=== PATIENT | male | born 1950 | race Caucasian/White ===

== ENCOUNTER 2022-05-24 21:49 | Inpatient (IN) ==
[2022-05-24] MEDS ORDERED: SODIUM CHLORIDE 0.9% 1000ML 1,000 ML IV ONE (21:55)
--- NOTE | 2022-05-24 22:09 | Emergency Department Note ---
Impression & Plan Seizure, Syncope, Elevated troponin I level, Contusion of left shoulder, Mass of bladder ED Provider Note NAME: OLIVIA SHEPHERD AGE: 71 SEX: M : 1950 ARRIVES VIA: Ambulance INFORMANT: Patient, ED PROVIDER(S): Marlon Knox DO CHIEF COMPLAINT: Syncope HPI: The patient is a 71-year-old male who presented to the emergency department after having a syncopal episode. Apparently the patient was at [facility] in [facility]. He was with family members. The patient states that he remembered going to stand up when he became very lightheaded and felt as though he was going to pass out. He does not remember what happened next. According to family members the patient fell striking the back of his head. The patient denies having any headache or abdominal pain. There was a reported seizure. The patient was then helped to his feet but then had another seizure. He did bite his tongue and have loss of bladder continence. The patient states he has no seizure history. He does have a history of COPD. He states over the course the last few weeks he has been very short of breath. He denies having any recent trauma otherwise. He does admit to some alcohol use this evening. ROS: See above HPI for pertinent positives & negatives. A total of 10 systems reviewed and were otherwise negative. PAST MEDICAL HISTORY: See Below PAST SURGICAL HISTORY: See Below FAMILY HISTORY: See Below SOCIAL HISTORY: See Below HOME MEDICATIONS: See Below ALLERGIES: See Below VITALS: See Below PHYSICAL EXAMINATION: GENERAL: The patient is awake and responds to questions. He does not appear to be uncomfortable but appears slightly listless. EYES: The conjunctivae are clear. The pupils are round and reactive. EARS, NOSE, MOUTH AND THROAT: The nose is without any evidence of any deformity. Mucous membranes are moist. There is a bite injury to the left side of the tongue. No active bleeding was noted. NECK: The neck is nontender and supple. RESPIRATORY: Diminished breath sounds are noted throughout. There is no tachypnea or conversational dyspnea CARDIOVASCULAR: Regular rate and rhythm noted there no murmurs rubs or gallops normal S1 normal S2. GASTROINTESTINAL: The abdomen is soft. Abdomen is nontender. MUSCULOSKELETAL/EXTREMITIES: There is no evidence of gross deformity full range of motion is noted in the hips. There is tenderness to palpation over the left shoulder. There is no crepitus. Range of motion appears intact but painful. SKIN: There is no obvious evidence of any rash. There are no petechiae, pallor or cyanosis noted. NEUROLOGIC: Patient is awake and oriented x3 strength is symmetric patellar reflexes are 2+ bilaterally MEDICAL DECISION MAKING: The patient is a 71-year-old male who presented to the emergency department by ambulance for an evaluation after having a syncopal episode. The patient apparently had syncope but also had 2 seizures. His family embers called 911. They were very concerned about the seizure but also the patient fell backwards striking his head. Upon arrival to the emergency department he was awake and alert. He clearly had a seizure as he did lose loss of control of his bladder b ut also bit his tongue. He does have a history of alcohol use. He is not clinically intoxicated and his presentation today would not be consistent with alcohol withdrawal seizure as he is not overly hypertensive or tachycardic. I discussed the patient's laboratory and radiographic studies with him and his son. He was treated with IV fluids in the emergency department. Initially he was hypotensive but this improved significantly after IV fluids. Given the patient's findings on laboratory study I do feel that he may benefit from inpatient management and further work-up. For this reason I will discuss his case with the on-call hospitalist. Triage Nursing notes reviewed. Prior medical records reviewed Vital Signs: reviewed and remarkable for tachycardia. Differential diagnosis: Fracture, dislocation, contusion, intra-abdominal, pneumothorax, intrathoracic, intracranial, neurologic, compartment syndrome, rhabdomyolysis, as well as other pathologies. ER treatment provided: See below Diagnostics interpreted by me: ECG: EKG was obtained in the emergency department. My interpretation is sinus tachycardia 110 bpm. Low voltage was noted throughout. Nonspecific T wave abnormalities were also noted. No previous tracing was available Cardiac Monitoring: An order was placed for continuous cardiac monitoring. The monitor shows a rate of 112 bpm with sinus tachycardia Laboratory studies: As stated above and show below. Imaging studies: See below. Radiographic imaging was reviewed by myself Consultation(s): I discussed this case with Dr. Patel who is on-call for the [facility] hospitalist group. Past Med/Surg History Medical History COPD (chronic obstructive pulmonary disease) Social History Smoking Status: Unknown if ever smoked Feels Safe at Home: Yes Allergies Allergies Allergy/AdvReac Type Severity Reaction Status Date / Time adhesive Allergy Redness of Verified 05/24/22 23:41 Skin latex Allergy Rash Verified 05/24/22 23:40 Home Meds Home Medications Medication Instructions Recorded Confirmed acetaminophen 500 mg tablet 1,000 mg PO BID PRN Pain 05/24/22 05/24/22 atorvastatin 20 mg tablet 20 mg PO DAILY 05/24/22 05/24/22 azithromycin 250 mg tablet 250 mg PO 3XWK 05/24/22 05/24/22 cyanocobalamin (vitamin B-12) 1,000 mcg PO DAILY 05/24/22 05/24/22 1,000 mcg tablet diclofenac sodium 75 mg 75 mg PO AMPM 05/24/22 05/24/22 tablet,delayed release diphenhydramine HCl 50 mg tablet 50 mg PO BID 05/24/22 05/24/22 fluticasone fur. 200 mcg-umeclid 1 inh inhalation DAILY 05/24/22 05/25/22 62.5 mcg-vilant 25 mcg inhalat.powder (Trelegy Ellipta) olmesartan 20 mg tablet 20 mg PO QAM 05/24/22 05/24/22 tadalafil 20 mg tablet 20 mg PO DAILY PRN Erectile 05/24/22 05/24/22 Dysfunction tamsulosin 0.4 mg capsule 0.4 mg PO AMPM 05/24/22 05/24/22 temazepam 30 mg capsule 30 mg PO HS 05/24/22 05/24/22 trazodone 50 mg tablet 50 mg PO HS PRN Insomnia 05/24/22 05/24/22 albuterol sulfate 90 mcg/actuation 2 inh inhalation Q4H PRN Shortness 05/25/22 05/25/22 aerosol inhaler Of Breath Or Wheezing hydrochlorothiazide 12.5 mg capsule 12.5 mg PO QAM 05/25/22 05/25/22 Results & Data (ED) Vital Signs Vital Signs - 24 hr 05/24/22 22:10 05/24/22 23:00 05/24/22 22:47 Temperature 37.1 C Temperature Source Oral Pulse Rate 109 H 108 H 108 H Pulse Rate [Left Radial] Pulse Rhythm Regular Pulse Rhythm [Left Radial] Pulse Strength Normal Pulse Strength [Left Radial] Respiratory Rate 22 Respiratory Effort / Characteristics Non-Labored Spontaneous Respiratory Depth Normal Respiratory Pattern Blood Pressure 93/70 L Blood Pressure [Right Arm] Blood Pressure Mean 77 Blood Pressure Mean [Right Arm] Blood Pressure Position Lying Pulse Oximetry 96 Oxygen Delivery Method Room Air Sepsis Recent Fever Within 48 Hours No Sepsis New/Unexplained Change in Mental Status No Sepsis Action Taken by Nursing No Action Required 05/25/22 00:11 Temperature Temperature Source Pulse Rate Pulse Rate [Left Radial] 112 H Pulse Rhythm Pulse Rhythm [Left Radial] Regular Pulse Strength Pulse Strength [Left Radial] Normal Respiratory Rate 15 Respiratory Effort / Characteristics Non-Labored Spontaneous Respiratory Depth Normal Respiratory Pattern Regular Blood Pressure Blood Pressure [Right Arm] 133/78 Blood Pressure Mean Blood Pressure Mean [Right Arm] 96 Blood Pressure Position Pulse Oximetry 96 Oxygen Delivery Method Room Air Sepsis Recent Fever Within 48 Hours Sepsis New/Unexplained Change in Mental Status Sepsis Action Taken by Skilled Nursing Medications Current Medication List: was personally reviewed by me Laboratory Data Attestation: I reviewed the patient's lab results. 05/24/22 22:01 05/24/22 23:43 Lab Results 05/24/22 05/24/22 05/24/22 Range/Units 22:01 22:01 22:01 WBC 8.07 (4.8-10.8) K/ul RBC 3.15 L (4.70-6.10) M/uL Hgb 11.3 L (14.0-18.0) g/dl POC Hgb (14.0-18.0) g/dl Hct 31.8 L (42.0-52.0) % POC Hct (42-52) % MCV 101.0 H (80.0-100.0) fL MCH 35.9 H (25.0-34.0) pg MCHC 35.5 (32.0-36.0) g/dL RDW Std Deviation 47.4 H (36.4-46.3) fL RDW Coeff of Harish 12.8 (11.5-14.5) % Plt Count 168 (130-400) K/uL MPV 11.0 (9.4-12.4) fL Immature Gran % (Auto) 1.5 % Neut % (Auto) 77.3 % Lymph % (Auto) 12.1 % [place] % (Auto) 7.7 % Eos % (Auto) 0.9 % Baso % (Auto) 0.5 % Neut # (Auto) 6.24 (1.40-6.50) K/uL Lymph # (Auto) 0.98 L (1.2-3.4) K/uL [place] # (Auto) 0.62 H (0.11-0.59) K/uL Eos # (Auto) 0.07 (0-0.50) K/uL Baso # (Auto) 0.04 (0-0.2) K/uL Immature Gran # (Auto) 0.12 (0.01-0.20) K/uL PT Cancelled INR Cancelled APTT Cancelled PTT Ratio Cancelled POC Sodium (135-144) mmol/L Sodium Cancelled POC Potassium (3.3-5.0) mmol/L Potassium Cancelled POC Chloride (101-112) mmol/L Chloride Cancelled Carbon Dioxide Cancelled POC Total CO2 (24-31) mmol/L Anion Gap Cancelled POC Anion Gap (16-25) mmol/L POC BUN (7-18) mg/dl BUN Cancelled Creatinine Cancelled POC Creatinine (0.6-1.3) mg/dl Est Cr Clr Drug Dosing Cancelled Est GFR ( Amer) Cancelled Est GFR (Non-Af Amer) Cancelled BUN/Creatinine Ratio Cancelled Glucose Cancelled POC Glucose (other) (70-99) mg/dl Calcium Cancelled POC Ioniz Calcium Melchor (1.12-1.32) mmol/l Total Bilirubin Cancelled AST Cancelled ALT Cancelled Alkaline Phosphatase Cancelled Troponin I High Sens Cancelled Total Protein Cancelled Albumin Cancelled Globulin Cancelled Albumin/Globulin Ratio Cancelled Lipase Cancelled Ethyl Alcohol mg/dL (<10.0) mg/dl 05/24/22 05/24/22 05/24/22 Range/Units 22:01 22:05 23:43 WBC (4.8-10.8) K/ul RBC (4.70-6.10) M/uL Hgb (14.0-18.0) g/dl POC Hgb 11.9 L (14.0-18.0) g/dl Hct (42.0-52.0) % POC Hct 35 L (42-52) % MCV (80.0-100.0) fL MCH (25.0-34.0) pg MCHC (32.0-36.0) g/dL RDW Std Deviation (36.4-46.3) fL RDW Coeff of Harish (11.5-14.5) % Plt Count (130-400) K/uL MPV (9.4-12.4) fL Immature Gran % (Auto) % Neut % (Auto) % Lymph % (Auto) % [place] % (Auto) % Eos % (Auto) % Baso % (Auto) % Neut # (Auto) (1.40-6.50) K/uL Lymph # (Auto) (1.2-3.4) K/uL [place] # (Auto) (0.11-0.59) K/uL Eos # (Auto) (0-0.50) K/uL Baso # (Auto) (0-0.2) K/uL Immature Gran # (Auto) (0.01-0.20) K/uL PT INR APTT PTT Ratio POC Sodium 136 (135-144) mmol/L Sodium 134 L POC Potassium 5.7 H (3.3-5.0) mmol/L Potassium 4.5 POC Chloride 109 (101-112) mmol/L Chloride 106 Carbon Dioxide 19 L POC Total CO2 16 L (24-31) mmol/L Anion Gap 9 POC Anion Gap 18.0 (16-25) mmol/L POC BUN 31 H (7-18) mg/dl BUN 23 Creatinine 1.35 POC Creatinine 1.6 H (0.6-1.3) mg/dl Est Cr Clr Drug Dosing 47.1 Est GFR ( Amer) 59.9 Est GFR (Non-Af Amer) 51.7 BUN/Creatinine Ratio 17.0 Glucose 111 H POC Glucose (other) 128 H (70-99) mg/dl Calcium 9.0 POC Ioniz Calcium Melchor 1.15 (1.12-1.32) mmol/l Total Bilirubin 0.9 AST 98 H ALT 67 H Alkaline Phosphatase 65 Troponin I High Sens 59.2 H* Total Protein 7.4 Albumin 4.4 Globulin 3.0 Albumin/Globulin Ratio 1.5 Lipase 73 Ethyl Alcohol mg/dL < 10.0 (<10.0) mg/dl 04/01/23 Range/Units 23:43 WBC (4.8-10.8) K/ul RBC (4.70-6.10) M/uL Hgb (14.0-18.0) g/dl POC Hgb (14.0-18.0) g/dl Hct (42.0-52.0) % POC Hct (42-52) % MCV (80.0-100.0) fL MCH (25.0-34.0) pg MCHC (32.0-36.0) g/dL RDW Std Deviation (36.4-46.3) fL RDW Coeff of Harish (11.5-14.5) % Plt Count (130-400) K/uL MPV (9.4-12.4) fL Immature Gran % (Auto) % Neut % (Auto) % Lymph % (Auto) % [place] % (Auto) % Eos % (Auto) % Baso % (Auto) % Neut # (Auto) (1.40-6.50) K/uL Lymph # (Auto) (1.2-3.4) K/uL [place] # (Auto) (0.11-0.59) K/uL Eos # (Auto) (0-0.50) K/uL Baso # (Auto) (0-0.2) K/uL Immature Gran # (Auto) (0.01-0.20) K/uL PT 11.5 INR 1.1 APTT 23.6 PTT Ratio 0.9 POC Sodium (135-144) mmol/L Sodium POC Potassium (3.3-5.0) mmol/L Potassium POC Chloride (101-112) mmol/L Chloride Carbon Dioxide POC Total CO2 (24-31) mmol/L Anion Gap POC Anion Gap (16-25) mmol/L POC BUN (7-18) mg/dl BUN Creatinine POC Creatinine (0.6-1.3) mg/dl Est Cr Clr Drug Dosing Est GFR ( Amer) Est GFR (Non-Af Amer) BUN/Creatinine Ratio Glucose POC Glucose (other) (70-99) mg/dl Calcium POC Ioniz Calcium Melchor (1.12-1.32) mmol/l Total Bilirubin AST ALT Alkaline Phosphatase Troponin I High Sens Total Protein Albumin Globulin Albumin/Globulin Ratio Lipase Ethyl Alcohol mg/dL (<10.0) mg/dl Administered Medications Discontinued Medications Sodium Chloride (Nss 1000ml) 1,000 mls @ 999 mls/hr IV .Q1H1M ONE Stop: 05/24/22 22:55 Last Infusion: 05/24/22 23:17 Dose: 0 mls/hr Documented By: Admin: 05/24/22 22:07 Dose: 999 mls/hr Documented By: VALERIA Ioversol (Optiray 320 500ml) 112 ml IV ONCE ONE Stop: 05/24/22 22:41 Last Admin: 05/24/22 22:41 Dose: 112 ml Documented By: ZIGGY Imaging Data Attestation: I personally reviewed and interpreted this imaging study as follows: My Impression: X-ray of the left shoulder was obtained in the emergency department. My inte rpretation is no definite fracture. Final report pending CT of the brain was obtained in the emergency department. My interpretation is no intracranial hemorrhage, no mass effect, final report below. Radiologist's Impression: Cervical Spine CT 05/24/22 21:55 Exam(s): CT C SPINE EXAM: CT Cervical Spine Without Intravenous Contrast CLINICAL HISTORY: Reason for exam: fall. TECHNIQUE: Axial computed tomography images of the cervical spine without intravenous contrast. CTDI is 38.03 mGy and DLP is 2329.08 mGy-cm. Automated exposure control was utilized for the study. A dose lowering technique was utilized adhering to the principles of ALARA. COMPARISON: No relevant prior studies available. FINDINGS: Vertebrae: Unremarkable. No acute fracture. Discs/spinal canal/neural foramina: The patient is status post anterior fusion at C6-7. There are moderate multilevel degenerative changes. No spinal canal stenosis. Soft tissues: Unremarkable. Vasculature: There are dense calcifications of the carotid bulbs. IMPRESSION: No acute findings in the cervical spine. Electronically signed by: Denver Connors MD 05/24/22 23:[address] 05/24/22 21:55 Exam(s): CT HEAD Without Contrast EXAM: CT Head Without Intravenous Contrast CLINICAL HISTORY: Reason for exam: fall. TECHNIQUE: Axial computed tomography images of the head/brain without intravenous contrast. CTDI is 38.03 mGy and DLP is 2329.08 mGy-cm. Automated exposure control was utilized for the study. A dose lowering technique was utilized adhering to the principles of ALARA. COMPARISON: No relevant prior studies available. FINDINGS: Brain: The cerebral and cerebellar sulci are mildly prominent consistent with mild brain atrophy. There are a few areas of decreased attenuation in the deep cerebral white matter consistent with mild small vessel ischemic/degenerative changes. No hemorrhage. Ventricles: Unremarkable. No ventriculomegaly. Bones/joints: Rightward deviation of the bony nasal septum. No acute fracture. Soft tissues: There is soft tissue swelling over the right parietal calvarium without underlying osseous injury identified. Vasculature: Atherosclerotic disease. Sinuses: Unremarkable as visualized. No acute sinusitis. Mastoid air cells: Unremarkable as visualized. No mastoid effusion. IMPRESSION: No acute findings in the head/brain. Electronically signed by: Denver Connors MD 05/24/22 23:43 PM Abdomen/Pelvis CT 05/24/22 22:01 Exam(s): CT ABDOMEN + PELVIS With Contrast IV Amt: 112 ml optiray EXAM: CT Abdomen and Pelvis With Intravenous Contrast CLINICAL HISTORY: Reason for exam: fall. TECHNIQUE: Axial computed tomography images of the abdomen and pelvis with intravenous contrast. CTDI is 38.03 mGy and DLP is 2329.08 mGy-cm. Automated exposure control was utilized for the study. A dose lowering technique was utilized adhering to the principles of ALARA. CONTRAST: Patient received 112 ml optiray of IV contrast COMPARISON: No relevant prior studies available. FINDINGS: Lung bases: 2 cm enhancing mass at the left base of the urinary bladder (image 71 series 9) concerning for urothelial cell carcinoma. ABDOMEN: Liver: Surface nodularity of the liver which may reflect early morphologic change of cirrhosis. Gallbladder and bile ducts: Unremarkable. No calcified stones. No ductal dilation. Pancreas: Unremarkable. No mass. No ductal dilation. Spleen: Unremarkable. No splenomegaly. Adrenals: Unremarkable. No mass. Kidneys and ureters: Simple appearing right renal cyst. No hydronephrosis. Stomach and bowel: Extensive colonic diverticula. No obstruction. No mucosal thickening. PELVIS: Appendix: No findings to suggest acute appendicitis. Bladder: See above. Reproductive: Unremarkable as visualized. ABDOMEN and PELVIS: Intraperitoneal space: Unremarkable. No free air. No significant fluid collection. Bones/joints: Degenerative changes of the thoracolumbar spine. No acute fracture. No dislocation. Soft tissues: Unremarkable. Vasculature: There is diffuse atherosclerotic calcification of the aorta and its major branch vessels. No abdominal aortic aneurysm. Lymph nodes: Unremarkable. No enlarged lymph nodes. IMPRESSION: 1. No acute post traumatic injury in the abdomen or pelvis. 2. 2 cm enhancing mass within the urinary bladder concerning for urothelial cell carcinoma, please correlate with cystoscopy. Electronically signed by: Denver Connors MD 05/24/22 23:51 PM Chest CTA 05/24/22 22:01 Exam(s): CTA CHEST IV Amt: 112 ml opitiray EXAM: CT Angiography Chest With Intravenous Contrast CLINICAL HISTORY: Reason for exam: PE. TECHNIQUE: Axial computed tomographic angiography images of the chest with intravenous contrast. CTDI is 38.03 mGy and DLP is 2329.08 mGy-cm. Automated exposure control was utilized for the study. A dose lowering technique was utilized adhering to the principles of ALARA. MIP reconstructed images were created and reviewed. COMPARISON: No relevant prior studies available. FINDINGS: Pulmonary arteries: Unremarkable. No pulmonary embolism. Aorta: No acute findings. No thoracic aortic aneurysm. Lungs: There is moderate scattered emphysema. There is mild bronchial wall thickening. No mass. Pleural space: Unremarkable. No significant effusion. No pneumothorax. Heart: Unremarkable. No cardiomegaly. No significant pericardial effusion. No evidence of RV dysfunction. Bones/joints: There are degenerative changes of the thoracolumbar spine. No acute fracture. No dislocation. Soft tissues: Unremarkable. Lymph nodes: Unremarkable. No enlarged lymph nodes. IMPRESSION: No acute findings in the visualized arteries of the chest. Electronically signed by: Denver Connors MD 05/24/22 23:48 PM Discharge Plan Visit Data Chief Complaint: Seizure Stated Complaint: SEIZURES/FALL HIT HEAD ED Provider: Marlon Knox Discharge Problem: Seizure, Syncope, Elevated troponin I level, Contusion of left shoulder, Mass of bladder Patient Disposition: Being Evaluated by Hospitalist Forms Stand Alone Forms: [facility] Prescriptions Prescriptions: No Action diclofenac sodium 75 mg tablet,delayed release (DR/EC) 75 mg PO AMPM Rx Instructions: TAKE WITH FOOD atorvastatin 20 mg tablet 20 mg PO DAILY olmesartan 20 mg tablet 20 mg PO QAM azithromycin 250 mg tablet 250 mg PO 3XWK Rx Instructions: TAKE THIS MED EVERY THURSDAY/THURSDAY/THURSDAY ( LONGTERM). temazepam 30 mg capsule 30 mg PO HS tadalafil 20 mg tablet 20 mg PO DAILY PRN (Reason: Erectile Dysfunction) cyanocobalamin (vitamin B-12) 1,000 mcg Tablet 1,000 mcg PO DAILY diphenhydramine HCl 50 mg Tablet 50 mg PO BID acetaminophen [Tylenol Ex Str Rapid Release] 500 mg Tablet 1,000 mg PO BID PRN (Reason: Pain) tamsulosin 0.4 mg capsule 0.4 mg PO AMPM trazodone 50 mg tablet 50 mg PO HS PRN (Reason: Insomnia) Trelegy Ellipta 200-62.5-25 mcg blister with device 1 inh INHALATION DAILY albuterol sulfate 90 mcg/actuation HFA aerosol inhaler 2 inh INHALATION Q4H PRN (Reason: Shortness Of Breath Or Wheezing) hydrochlorothiazide 12.5 mg capsule 12.5 mg PO QAM Referrals Referrals: PCP,NO [Physician] - Syncope Qualifiers: Syncope type: unspecified Qualified Code(s): R55 - Syncope and collapse Contusion of left shoulder Qualifiers: Encounter type: initial encounter Qualified Code(s): S40.012A - Contusion of left shoulder, initial encounter
[2022-05-24 22:26] LABS: Basophils # (auto) 0.04 K/uL (0-0.2); Basophils % (auto) 0.5 %; Eosinophils # (auto) 0.07 K/uL (0-0.50); Eosinophils % (auto) 0.9 %; Hematocrit (blood only) 31.8 % (42.0-52.0); Hemoglobin 11.3 g/dl (14.0-18.0); Immature Granulocytes # (auto) 0.12 K/uL (0.01-0.20); Immature Granulocytes % (auto) 1.5 %; Lymphocytes # (auto) 0.98 K/uL (1.2-3.4); Lymphocytes % (auto) 12.1 %; Mean Corpuscular Hemoglobin 35.9 pg (25.0-34.0); Mean Corpuscular Hgb Conc 35.5 g/dL (32.0-36.0); Monocytes # (auto) 0.62 K/uL (0.11-0.59); Monocytes % (auto) 7.7 %; Neutrophils # (auto) 6.24 K/uL (1.40-6.50); Neutrophils % (auto) 77.3 %; Platelet Count 168 K/uL (130-400); RDW Coefficient of Variation 12.8 % (11.5-14.5); RDW Standard Deviation 47.4 fL (36.4-46.3); Red Blood Count 3.15 M/uL (4.70-6.10); White Blood Count 8.07 K/ul (4.8-10.8)
[2022-05-24 22:28] LABS: iSTAT Creatinine 1.6 mg/dl (0.6-1.3); iSTAT Hemoglobin 11.9 g/dl (14.0-18.0); iSTAT Ionized Calcium 1.15 mmol/l (1.12-1.32); iSTAT Potassium 5.7 mmol/L (3.3-5.0)
[2022-05-24] MEDS ORDERED: OPTIRAY 320 500ml IV ONE (22:40)
--- NOTE | 2022-05-24 23:44 | CT Scan Report ---
Exam(s): CT HEAD Without Contrast EXAM: CT Head Without Intravenous Contrast CLINICAL HISTORY: Reason for exam: fall. TECHNIQUE: Axial computed tomography images of the head/brain without intravenous contrast. CTDI is 38.03 mGy and DLP is 2329.08 mGy-cm. Automated exposure control was utilized for the study. A dose lowering technique was utilized adhering to the principles of ALARA. COMPARISON: No relevant prior studies available. FINDINGS: Brain: The cerebral and cerebellar sulci are mildly prominent consistent with mild brain atrophy. There are a few areas of decreased attenuation in the deep cerebral white matter consistent with mild small vessel ischemic/degenerative changes. No hemorrhage. Ventricles: Unremarkable. No ventriculomegaly. Bones/joints: Rightward deviation of the bony nasal septum. No acute fracture. Soft tissues: There is soft tissue swelling over the right parietal calvarium without underlying osseous injury identified. Vasculature: Atherosclerotic disease. Sinuses: Unremarkable as visualized. No acute sinusitis. Mastoid air cells: Unremarkable as visualized. No mastoid effusion. IMPRESSION: No acute findings in the head/brain. Electronically signed by: Denver Connors MD 05/24/22 23:43 PM
--- NOTE | 2022-05-24 23:45 | CT Scan Report ---
Exam(s): CT C SPINE EXAM: CT Cervical Spine Without Intravenous Contrast CLINICAL HISTORY: Reason for exam: fall. TECHNIQUE: Axial computed tomography images of the cervical spine without intravenous contrast. CTDI is 38.03 mGy and DLP is 2329.08 mGy-cm. Automated exposure control was utilized for the study. A dose lowering technique was utilized adhering to the principles of ALARA. COMPARISON: No relevant prior studies available. FINDINGS: Vertebrae: Unremarkable. No acute fracture. Discs/spinal canal/neural foramina: The patient is status post anterior fusion at C6-7. There are moderate multilevel degenerative changes. No spinal canal stenosis. Soft tissues: Unremarkable. Vasculature: There are dense calcifications of the carotid bulbs. IMPRESSION: No acute findings in the cervical spine. Electronically signed by: Denver Connors MD 05/24/22 23:45 PM
--- NOTE | 2022-05-24 23:49 | CT Scan Report ---
Exam(s): CTA CHEST IV Amt: 112 ml opitiray EXAM: CT Angiography Chest With Intravenous Contrast CLINICAL HISTORY: Reason for exam: PE. TECHNIQUE: Axial computed tomographic angiography images of the chest with intravenous contrast. CTDI is 38.03 mGy and DLP is 2329.08 mGy-cm. Automated exposure control was utilized for the study. A dose lowering technique was utilized adhering to the principles of ALARA. MIP reconstructed images were created and reviewed. COMPARISON: No relevant prior studies available. FINDINGS: Pulmonary arteries: Unremarkable. No pulmonary embolism. Aorta: No acute findings. No thoracic aortic aneurysm. Lungs: There is moderate scattered emphysema. There is mild bronchial wall thickening. No mass. Pleural space: Unremarkable. No significant effusion. No pneumothorax. Heart: Unremarkable. No cardiomegaly. No significant pericardial effusion. No evidence of RV dysfunction. Bones/joints: There are degenerative changes of the thoracolumbar spine. No acute fracture. No dislocation. Soft tissues: Unremarkable. Lymph nodes: Unremarkable. No enlarged lymph nodes. IMPRESSION: No acute findings in the visualized arteries of the chest. Electronically signed by: Denver Connors MD 05/24/22 23:48 PM
--- NOTE | 2022-05-24 23:52 | CT Scan Report ---
Exam(s): CT ABDOMEN + PELVIS With Contrast IV Amt: 112 ml optiray EXAM: CT Abdomen and Pelvis With Intravenous Contrast CLINICAL HISTORY: Reason for exam: fall. TECHNIQUE: Axial computed tomography images of the abdomen and pelvis with intravenous contrast. CTDI is 38.03 mGy and DLP is 2329.08 mGy-cm. Automated exposure control was utilized for the study. A dose lowering technique was utilized adhering to the principles of ALARA. CONTRAST: Patient received 112 ml optiray of IV contrast COMPARISON: No relevant prior studies available. FINDINGS: Lung bases: 2 cm enhancing mass at the left base of the urinary bladder (image 71 series 9) concerning for urothelial cell carcinoma. ABDOMEN: Liver: Surface nodularity of the liver which may reflect early morphologic change of cirrhosis. Gallbladder and bile ducts: Unremarkable. No calcified stones. No ductal dilation. Pancreas: Unremarkable. No mass. No ductal dilation. Spleen: Unremarkable. No splenomegaly. Adrenals: Unremarkable. No mass. Kidneys and ureters: Simple appearing right renal cyst. No hydronephrosis. Stomach and bowel: Extensive colonic diverticula. No obstruction. No mucosal thickening. PELVIS: Appendix: No findings to suggest acute appendicitis. Bladder: See above. Reproductive: Unremarkable as visualized. ABDOMEN and PELVIS: Intraperitoneal space: Unremarkable. No free air. No significant fluid collection. Bones/joints: Degenerative changes of the thoracolumbar spine. No acute fracture. No dislocation. Soft tissues: Unremarkable. Vasculature: There is diffuse atherosclerotic calcification of the aorta and its major branch vessels. No abdominal aortic aneurysm. Lymph nodes: Unremarkable. No enlarged lymph nodes. IMPRESSION: 1. No acute post traumatic injury in the abdomen or pelvis. 2. 2 cm enhancing mass within the urinary bladder concerning for urothelial cell carcinoma, please correlate with cystoscopy. Electronically signed by: Denver Connors MD 05/24/22 23:51 PM
[2022-05-25 00:12] LABS: Albumin Globulin Ratio 1.5 (0.9-2); Albumin Level 4.4 gm/dl (3.4-5.0); Bilirubin,Total 0.9 mg/dl (0.2-1.0); Creatinine Clr Calc Pharmacy 47.1 ml/min; Est GFR (African American) 59.9 ml/min; Est GFR (Non-African American) 51.7 ml/min; Potassium 4.5 mmol/L (3.5-5.1); Total Protein 7.4 gm/dl (6.0-8.3)
[2022-05-25 00:24] LABS: Troponin I High Sensitivity 59.2 pg/ml (0-20)
[2022-05-25 00:49] LABS: INR 1.1 (0.9-1.1); Partial Thromboplastin Ratio 0.9; Partial Thromboplastin Time 23.6 Seconds (21.0-31.0); Prothrombin Time 11.5 Seconds (9.0-12.0)
--- NOTE | 2022-05-25 01:12 | History & Physical Report ---
Date of Service May 25, 2022 Assessment & Plan (1) Seizure: Plan: 71 yo male with PMHx of HLD, HTN, BPH, and insomnia presents with syncopal event and seizure. #Syncope #Seizure #Fall -presented s/p syncopal event and witnessed seizure x2. Hypotensive on arrival otherwise asymptomatic. Denies seizure history. No prodrome. Suspect syncope 2/2 dehydration or orthostasis. Cannot r/o cardiac cause. No leukocytosis. R shoulder XR pending to r/o acute fx. -CT head and C-spine negative. CTA chest negative for PE. -EKG pending. Tele reads NSR. -Echo ordered -hold BP lowering medications as well as sedating medications -will leave NPO for now with aspiration and fall precautions -neuro consulted #Elevated troponin -58 on admission. Suspect due to demand or injury from seizure. Cont. to trend. #Bladder Mass -incidental finding on CT A/P: 2 cm enhancing mass within the urinary bladder -will need further evaluation with cystoscopy. Discuss with pt whether to evaluate inpatient vs outpatient. #COPD -cont. inhalers #Insomnia -hold trazodone, temazepam, diphenhydramine #HLD -cont. atorvastatin #HTN -hold HCTZ and olmesartan as above #BPH -hold tamsulosin as above DVT ppx: Heparin FEN/GI: NPO Code Status: Full Dispo: PCU (2) Syncope: (3) Elevated troponin I level: (4) Contusion of left shoulder: (5) Mass of bladder: History of Present Illness Chief Complaint: syncope, seizure Primary Care Provider: REYES RANDLE 71 yo male with PMHx of HLD, HTN, BPH, and insomnia presents with syncopal event and seizure. He was at [facility] in [facility]. He was with family members who witnessed the event.Patient recalls standing up and then feeling dizzy and lightheaded to the point he fainted and hit the back of his head on the ground. Family reports when he was on the ground he had an initial seizure for 2 minutes. Then when paramedics arrived he had another seizure lasting about 5 minutes. He did bite his tongue. He does not recall the seizure. Other than some ongoing shortness of breath the last few weeks pt denies headache, fever, fatigue, chest pain, abd pain,N/V/D. He is compliant at home with his medications and inhalers. Denies past seizure history. He does drink about 6 beers daily and was drinking prior to syncopal episode. Allergies Allergy/AdvReac Type Severity Reaction Status Date / Time adhesive Allergy Redness of Verified 05/24/22 23:41 Skin latex Allergy Rash Verified 05/24/22 23:40 Home Medications Medication Instructions Recorded Confirmed Type acetaminophen 500 mg tablet 1,000 mg PO BID PRN Pain 05/24/22 05/24/22 History atorvastatin 20 mg tablet 20 mg PO DAILY 05/24/22 05/24/22 History azithromycin 250 mg tablet 250 mg PO 3XWK 05/24/22 05/24/22 History cyanocobalamin (vitamin B-12) 1,000 mcg PO DAILY 05/24/22 05/24/22 History 1,000 mcg tablet diclofenac sodium 75 mg 75 mg PO AMPM 05/24/22 05/24/22 History tablet,delayed release diphenhydramine HCl 50 mg tablet 50 mg PO BID 05/24/22 05/24/22 History fluticasone fur. 200 mcg-umeclid 1 inh inhalation DAILY 05/24/22 05/25/22 History 62.5 mcg-vilant 25 mcg inhalat.powder (Trelegy Ellipta) tadalafil 20 mg tablet 20 mg PO DAILY PRN Erectile 05/24/22 05/24/22 History Dysfunction tamsulosin 0.4 mg capsule 0.4 mg PO AMPM 05/24/22 05/24/22 History temazepam 30 mg capsule 30 mg PO HS 05/24/22 05/24/22 History trazodone 50 mg tablet 50 mg PO HS PRN Insomnia 05/24/22 05/24/22 History albuterol sulfate 90 mcg/actuation 2 inh inhalation Q4H PRN Shortness 05/25/22 05/25/22 History aerosol inhaler Of Breath Or Wheezing Past Med/Surg History Medical History COPD (chronic obstructive pulmonary disease) Social History Smoking Status: Former smoker Hx Alcohol Use: Yes Alcohol type: beer Hx Substance Use: No Preferred Language: Guyanese Communication Ability: Effective [employer] Required: No Beliefs That Will Affect Care: None Current Living Situation: Spouse Feels Safe at Home: Yes Assistive Devices: None Review of Systems Review of Systems: All systems reviewed & are unremarkable except as noted in HPI & below Physical Exam Physical Exam: Constitutional: in no acute distress, pleasant, intact memory. AOx3. Vitals as above. HEENT: No scleral injection or discharge.Dry mucous membranes. Bite injury to the left side of the tongue. Neck: Supple without lymphadenopathy or thyromegaly. Trachea midline. Lungs: Clear to auscultation bilaterally with good effort. Cardiac: Regular rate and rhythm. No murmurs. No extremity edema. 2+ peripheral distal pulses. Abdomen: Soft, nontender, and nondistended.No guarding. No hepatosplenomegaly. MSK: No cyanosis or clubbing. Extremities motor strength 5/5. Skin: No rashes, warm, dry. Neurologic: No focal deficits. PERRL. Results & Data Results & Data Vital Signs (Past 12 Hours) Vital Signs Temp Pulse Pulse Resp BP BP Pulse Ox 05/25/22 00:11 112 H 15 133/78 96 05/24/22 22:47 108 H 05/24/22 23:00 108 H 05/24/22 22:10 37.1 C 109 H 22 93/70 L 96 O2 Del Method 05/25/22 00:11 Room Air 05/24/22 22:47 05/24/22 23:00 05/24/22 22:10 Room Air Laboratory Results Laboratory Results WBC 8.07 K/ul (4.8-10.8) 05/24/22 22:01 RBC 3.15 M/uL (4.70-6.10) L 05/24/22 22:01 Hgb 11.3 g/dl (14.0-18.0) L 05/24/22 22:01 POC Hgb 11.9 g/dl (14.0-18.0) L 05/24/22 22:05 Hct 31.8 % (42.0-52.0) L 05/24/22 22:01 POC Hct 35 % (42-52) L 05/24/22 22:05 MCV 101.0 fL (80.0-100.0) H 05/24/22 22:01 MCH 35.9 pg (25.0-34.0) H 05/24/22 22:01 MCHC 35.5 g/dL (32.0-36.0) 05/24/22 22: RDW Std Deviation 47.4 fL (36.4-46.3) H 05/24/22 22:01 RDW Coeff of Harish 12.8 % (11.5-14.5) 05/24/22 22:01 Plt Count 168 K/uL (130-400) 05/24/22 22: MPV 11.0 fL (9.4-12.4) 05/24/22 22: Immature Gran % (Auto) 1.5 % 05/24/22 22: Neut % (Auto) 77.3 % 05/24/22 22: Lymph % (Auto) 12.1 % 05/24/22 22: Heard % (Auto) 7.7 % 05/24/22 22: Eos % (Auto) 0.9 % 05/24/22 22: Baso % (Auto) 0.5 % 05/24/22 22: Neut # (Auto) 6.24 K/uL (1.40-6.50) 05/24/22 22:01 Lymph # (Auto) 0.98 K/uL (1.2-3.4) L 05/24/22 22:01 Heard # (Auto) 0.62 K/uL (0.11-0.59) H 05/24/22 22:01 Eos # (Auto) 0.07 K/uL (0-0.50) 05/24/22 22:01 Baso # (Auto) 0.04 K/uL (0-0.2) 05/24/22 22: Immature Gran # (Auto) 0.12 K/uL (0.01-0.20) 05/24/22 22: PT 11.5 Seconds (9.0-12.0) 05/24/22 23:43 INR 1.1 (0.9-1.1) 05/24/22 23:43 APTT 23.6 Seconds (21.0-31.0) 05/24/22 23:43 PTT Ratio 0.9 05/24/22 23:43 POC Sodium 136 mmol/L (135-144) 05/24/22 22:05 Sodium 134 mmol/L (136-145) L 05/24/22 23:43 POC Potassium 5.7 mmol/L (3.3-5.0) H 05/24/22 22:05 Potassium 4.5 mmol/L (3.5-5.1) 05/24/22 23:43 POC Chloride 109 mmol/L (101-112) 05/24/22 22:05 Chloride 106 mmol/L (98-107) 05/24/22 23:43 Carbon Dioxide 19 mmol/L (21-32) L 05/24/22 23:43 POC Total CO2 16 mmol/L (24-31) L 05/24/22 22:05 Anion Gap 9 (3-11) 05/24/22 23:43 POC Anion Gap 18.0 mmol/L (16-25) 05/24/22 22:05 POC BUN 31 mg/dl (7-18) H 05/24/22 22:05 BUN 23 mg/dl (6-23) 05/24/22 23:43 Creatinine 1.35 mg/dl (0.6-1.4) 05/24/22 23:43 POC Creatinine 1.6 mg/dl (0.6-1.3) H 05/24/22 22:05 Est Cr Clr Drug Dosing 47.1 ml/min 05/24/22 23:43 Est GFR ( Amer) 59.9 ml/min 05/24/22 23:43 Est GFR (Non-Af Amer) 51.7 ml/min 05/24/22 23:43 BUN/Creatinine Ratio 17.0 (10-20) 05/24/22 23:43 Glucose 111 mg/dl (70-99(Fasting)) H 05/24/22 23:43 POC Glucose (other) 128 mg/dl (70-99) H 05/24/22 22:05 Calcium 9.0 mg/dl (8.6-10.3) 05/24/22 23:43 POC Ioniz Calcium Melchor 1.15 mmol/l (1.12-1.32) 05/24/22 22:05 Total Bilirubin 0.9 mg/dl (0.2-1.0) 05/24/22 23:43 AST 98 U/L (13-39) H 05/24/22 23:43 ALT 67 U/L (7-52) H 05/24/22 23:43 Alkaline Phosphatase 65 U/L (34-104) 05/24/22 23:43 Troponin I High Sens 59.2 pg/ml (0-20) H* 05/24/22 23:43 Total Protein 7.4 gm/dl (6.0-8.3) 05/24/22 23:43 Albumin 4.4 gm/dl (3.4-5.0) 05/24/22 23:43 Globulin 3.0 gm/dl (2.5-4.0) 05/24/22 23:43 Albumin/Globulin Ratio 1.5 (0.9-2) 05/24/22 23:43 Lipase 73 U/L (11-82) 05/24/22 23:43 Ethyl Alcohol mg/dL < 10.0 mg/dl (<10.0) 05/24/22 22:01 SARS-CoV-2, RNA, NAAT NEGATIVE (NEGATIVE) 05/25/22 01:[address] 05/24/22 21:55 Exam(s): CT C SPINE EXAM: CT Cervical Spine Without Intravenous Contrast CLINICAL HISTORY: Reason for exam: fall. TECHNIQUE: Axial computed tomography images of the cervical spine without intravenous contrast. CTDI is 38.03 mGy and DLP is 2329.08 mGy-cm. Automated exposure control was utilized for the study. A dose lowering technique was utilized adhering to the principles of ALARA. COMPARISON: No relevant prior studies available. FINDINGS: Vertebrae: Unremarkable. No acute fracture. Discs/spinal canal/neural foramina: The patient is status post anterior fusion at C6-7. There are moderate multilevel degenerative changes. No spinal canal stenosis. Soft tissues: Unremarkable. Vasculature: There are dense calcifications of the carotid bulbs. IMPRESSION: No acute findings in the cervical spine. Electronically signed by: Denver Connors MD 05/24/22 23:[address] 05/24/22 21:55 Exam(s): CT HEAD Without Contrast EXAM: CT Head Without Intravenous Contrast CLINICAL HISTORY: Reason for exam: fall. TECHNIQUE: Axial computed tomography images of the head/brain without intravenous contrast. CTDI is 38.03 mGy and DLP is 2329.08 mGy-cm. Automated exposure control was utilized for the study. A dose lowering technique was utilized adhering to the principles of ALARA. COMPARISON: No relevant prior studies available. FINDINGS: Brain: The cerebral and cerebellar sulci are mildly prominent consistent with mild brain atrophy. There are a few areas of decreased attenuation in the deep cerebral white matter consistent with mild small vessel ischemic/degenerative changes. No hemorrhage. Ventricles: Unremarkable. No ventriculomegaly. Bones/joints: Rightward deviation of the bony nasal septum. No acute fracture. Soft tissues: There is soft tissue swelling over the right parietal calvarium without underlying osseous injury identified. Vasculature: Atherosclerotic disease. Sinuses: Unremarkable as visualized. No acute sinusitis. Mastoid air cells: Unremarkable as visualized. No mastoid effusion. IMPRESSION: No acute findings in the head/brain. Electronically signed by: Denver Connors MD 05/24/22 23:43 PM Abdomen/Pelvis CT 05/24/22 22:01 Exam(s): CT ABDOMEN + PELVIS With Contrast IV Amt: 112 ml optiray EXAM: CT Abdomen and Pelvis With Intravenous Contrast CLINICAL HISTORY: Reason for exam: fall. TECHNIQUE: Axial computed tomography images of the abdomen and pelvis with intravenous contrast. CTDI is 38.03 mGy and DLP is 2329.08 mGy-cm. Automated exposure control was utilized for the study. A dose lowering technique was utilized adhering to the principles of ALARA. CONTRAST: Patient received 112 ml optiray of IV contrast COMPARISON: No relevant prior studies available. FINDINGS: Lung bases: 2 cm enhancing mass at the left base of the urinary bladder (image 71 series 9) concerning for urothelial cell carcinoma. ABDOMEN: Liver: Surface nodularity of the liver which may reflect early morphologic change of cirrhosis. Gallbladder and bile ducts: Unremarkable. No calcified stones. No ductal dilation. Pancreas: Unremarkable. No mass. No ductal dilation. Spleen: Unremarkable. No splenomegaly. Adrenals: Unremarkable. No mass. Kidneys and ureters: Simple appearing right renal cyst. No hydronephrosis. Stomach and bowel: Extensive colonic diverticula. No obstruction. No mucosal thickening. PELVIS: Appendix: No findings to suggest acute appendicitis. Bladder: See above. Reproductive: Unremarkable as visualized. ABDOMEN and PELVIS: Intraperitoneal space: Unremarkable. No free air. No significant fluid collection. Bones/joints: Degenerative changes of the thoracolumbar spine. No acute fracture. No dislocation. Soft tissues: Unremarkable. Vasculature: There is diffuse atherosclerotic calcification of the aorta and its major branch vessels. No abdominal aortic aneurysm. Lymph nodes: Unremarkable. No enlarged lymph nodes. IMPRESSION: 1. No acute post traumatic injury in the abdomen or pelvis. 2. 2 cm enhancing mass within the urinary bladder concerning for urothelial cell carcinoma, please correlate with cystoscopy. Electronically signed by: Denver Connors MD 05/24/22 23:51 PM Chest CTA 05/24/22 22:01 Exam(s): CTA CHEST IV Amt: 112 ml opitiray EXAM: CT Angiography Chest With Intravenous Contrast CLINICAL HISTORY: Reason for exam: PE. TECHNIQUE: Axial computed tomographic angiography images of the chest with intravenous contrast. CTDI is 38.03 mGy and DLP is 2329.08 mGy-cm. Automated exposure control was utilized for the study. A dose lowering technique was utilized adhering to the principles of ALARA. MIP reconstructed images were created and reviewed. COMPARISON: No relevant prior studies available. FINDINGS: Pulmonary arteries: Unremarkable. No pulmonary embolism. Aorta: No acute findings. No thoracic aortic aneurysm. Lungs: There is moderate scattered emphysema. There is mild bronchial wall thickening. No mass. Pleural space: Unremarkable. No significant effusion. No pneumothorax. Heart: Unremarkable. No cardiomegaly. No significant pericardial effusion. No evidence of RV dysfunction. Bones/joints: There are degenerative changes of the thoracolumbar spine. No acute fracture. No dislocation. Soft tissues: Unremarkable. Lymph nodes: Unremarkable. No enlarged lymph nodes. IMPRESSION: No acute findings in the visualized arteries of the chest. Electronically signed by: Denver Connors MD 05/24/22 23:48 PM Supervising Physician Co-Signing Physician Notes Attending addendum: I have physically seen this patient, have supervised the medical residents activities, and agree with the H&P unless as otherwise noted. Assessment and Plan: Seizure associated with syncope and fall- Symptoms likely began with dehydration and orthostasis, leading to syncope. May have been complicated by tamsulosin that is being taken twice daily. The patient will be admitted to telemetry for serial cardiac enzymes, serial EKG's, cardiac rhythm monitoring and a 2-D echocardiogram with Dopplers. CT head and CT C-spine negative CTA chest PE protocol negative for PE Elevated troponin/hypertension- Troponin 59.2 on admission The patient will be admitted to telemetry for serial cardiac enzymes, serial EKG's, cardiac rhythm monitoring and a 2-D echocardiogram with Dopplers. Likely type II supply/demand mismatch New bladder mass- CT abdomen pelvis notes an incidental 2 cm bladder mass, concerning for urothelial tumor Discussed with patient, and will need to be followed up in the outpatient setting Hyperlipidemia- Continue atorvastatin 20 mg daily Check a fasting lipid panel COPD- Continue Trelegy Ellipta Continue butyryl sulfate HFA every 4 hours as needed BPH- Presently on tamsulosin 0.4 mg p.o. twice daily Should consider changing to 0.8 at bedtime Insomnia- Patient will need to keep track that if he has issues with presyncope or syncope after taking trazodone the night before, he should avoid trazodone as well B12 deficiency- Continue supplement 1000 mcg daily Resident Activity Tracking Resident Involvement: Resident Care Provided Care Provided: Adult Hospital Medicine (2) Syncope Syncope type: unspecified Qualified Code(s): R55 - Syncope and collapse (4) Contusion of left shoulder Encounter type: initial encounter Qualified Code(s): S40.012A - Contusion of left shoulder, initial encounter
[2022-05-25] MEDS ORDERED: ACETAMINOPHEN 1,000 MG/100 ML VIAL IV STA (01:59)
[2022-05-25 03:51] LABS: Appearance Urine Clear (Clear); Bacteria Urine Automated Negative (Negative); Bilirubin Urine Negative (Negative); Blood Urine 2+ (Negative); Cast Urine Automated 0 /lpf (0-5); Color Urine Yellow; Epithelial Cell Urine Auto 0-5 /lpf (0-5); Glucose Urine UA Negative (Negative); Ketones Urine Trace (Negative); Leukocyte Esterase Urine Negative (Negative); Nitrite Urine Negative (Negative); Protein Urine Negative (Negative); RBC Urine Automated 0-4 /hpf (0-4); Specific Gravity Urine 1.021 (1.000-1.030); Urobilinogen Urine Negative (Negative); WBC Urine Automated 0 /hpf (0-5)
[2022-05-25] MEDS ORDERED: ALBUTEROL HFA 8 GM INHALER INH PRN (04:17)
[2022-05-25] MEDS: SODIUM CHLORIDE 0.9% 1000ML 1,000 ML IV SCH ×2 (05:04→14:38)
[2022-05-25 06:40] LABS: Amphetamines+Metham, Urine Neg (Neg); Barbiturates, Urine Neg (Neg); Benzodiazepine, Urine Neg (Neg); Cocaine, Urine Neg (Neg); MDMA (Ecstacy), Urine Neg (Neg); Methadone, Urine Neg (Neg); Opiate, Urine Neg (Neg); Phencyclidine, Urine Neg (Neg)
[2022-05-25] MEDS ORDERED: DICLOFENAC SODIUM 75 MG TABCR PO SCH (08:00)
--- NOTE | 2022-05-25 08:04 | Hospitalist Progress Note ---
Date of Service May 25, 2022 Assessment & Plan (1) Seizure: Plan: 71 yo male with PMHx of HLD, HTN, BPH, and insomnia presents with syncopal event and seizure. Acute unstable moderate risk -presented s/p syncopal event and witnessed seizure x2. Denies seizure history does take hs temazepam. Suspect syncope secondary to dehydration or orthostasis, and movements seen maybe not true seizures -CT head and C-spine negative. CTA chest negative for PE. -shoulder x ray interpretation pending -neuro consulted Acute Elevated troponin, maybe demand ischemia from low blood pressure on presentation (HCTZ and olmesartan) -58 -> 95 EKG pending. Tele reads NSR. -Echo ordered typically on atorvastatin for cardiac risk factor modification COPD Chronic respiratory failure, stable -cont. inhalers -on chronic supressive azithromycin 3 x a week Insomnia chronic stable -hold trazodone, temazepam, diphenhydramine chronic stable BPH Bladder Mass suspiciouis for urothelial malignancy -incidental finding on CT A/P: 2 cm enhancing mass within the urinary bladder -will need further evaluation with cystoscopy. DVT ppx: Heparin Code Status: Full (2) Elevated troponin I level: (3) Mass of bladder: Admission and Anticipated Discharge Date Admission Date: May 25, 2022 Results & Data Results & Data Vital Signs (Past 12 Hours) Vital Signs Temp Pulse Pulse Resp BP BP Pulse Ox 05/25/22 07:35 98.4 F 73 18 136/82 97 05/25/22 04:56 83 05/25/22 04:31 97.9 F 90 20 146/72 H 96 05/25/22 02:27 103 H 05/25/22 01:50 106 H 14 130/81 97 05/25/22 00:11 112 H 15 133/78 96 05/24/22 22:47 108 H 05/24/22 23:00 108 H 05/24/22 22:10 98.8 F 109 H 22 93/70 L 96 O2 Del Method 05/25/22 07:35 Room Air 05/25/22 04:56 05/25/22 04:31 Room Air 05/25/22 02:27 05/25/22 01:50 Room Air 05/25/22 00:11 Room Air 05/24/22 22:47 05/24/22 23:00 05/24/22 22:10 Room Air PG Care Time/CCT Total # of Minutes Spent Total Time Spent with Patient: Total time spent is greater than 50% in coordination of care (as documented) at patient's floor/unit and/or counseling patient: Coding Diagnoses Seizure R56.9 Elevated troponin I level R77.8 Mass of bladder N32.89
--- NOTE | 2022-05-25 08:41 | Electrocardiogram Report ---
Test Reason : Blood Pressure : / mmHG Vent. Rate : 110 BPM Atrial Rate : 110 BPM P-R Int : 144 ms QRS Dur : 060 ms QT Int : 322 ms P-R-T Axes : 085 042 055 degrees QTc Int : 435 ms Poor data quality, interpretation may be adversely affected Sinus tachycardia Nonspecific T wave abnormality Anterior leads Abnormal ECG No previous ECGs available Confirmed by Josafat Vásquez ([id number]) on 05/25/2022 8:41:41 AM Referred By: REFERRED SELF Confirmed By:Josafat Vásquez
--- NOTE | 2022-05-25 08:42 | XRay Report ---
XR shoulder LT min 2V routine CLINICAL HISTORY: fall TECHNIQUE: 3 views of the left shoulder were obtained. Comparison: None available at the time of this dictation. FINDINGS: There is no evidence of an acute fracture. Joint spaces are well-preserved. The overlying soft tissue s are unremarkable. The visualized portions of the lungs are clear. IMPRESSION: No evidence of acute osseous injury. ACT 112: Negative or not required by law. Electronically signed by: Tony Moody M.D. 05/25/2022 8:40 AM
[2022-05-25] MEDS ORDERED: UMECLIDINIUM/VILANTEROL 62.5/25MCG 7 PUFFS/INHALER INH SCH (09:00)
[2022-05-25] MEDS ORDERED: FLUTICASONE FUROATE 200MCG 14 PUFFS/INHALER INH SCH (09:00)
[2022-05-25] MEDS ORDERED: ATORVASTATIN 20 MG TAB PO SCH (09:00)
[2022-05-25] MEDS ORDERED: CYANOCOBALAMIN (B-12) 500 MCG TABLET PO SCH (09:00)
[2022-05-25] MEDS ORDERED: HEPARIN SOD 5,000 UNIT/0.5 ML VIAL SQ SCH (09:00)
[2022-05-25 09:47] LABS: BUN Creatinine Ratio 16.7 (10-20); Calcium 9.3 mg/dl (8.6-10.3); Creatinine Clr Calc Pharmacy 58.9 ml/min; Est GFR (African American) 78.5 ml/min; Est GFR (Non-African American) 67.7 ml/min; Magnesium 2.1 mg/dl (1.7-2.4); Potassium 4.2 mmol/L (3.5-5.1)
[2022-05-25 10:01] LABS: Troponin I High Sensitivity 75.4 pg/ml (0-20)
[2022-05-25] MEDS ORDERED: ACETAMINOPHEN 500 MG TAB PO PRN (11:05)
--- NOTE | 2022-05-25 11:30 | XCELERA ---
[id number] \\[email or web address]\[id number]
--- NOTE | 2022-05-25 15:18 | Neurology Consultation ---
Date of Consultation May 25, 2022 Assessment & Plan (1) Syncope: Impression: The patient initially had a syncopal event. He felt lightheaded and dizzy after standing up, with following loss of consciousness. Orthostatic hypotension and vasovagal hyperactivity are likely mechanism of syncope. There has been no cardiac rhythm abnormalities since admission. The patient denies having chest pain, or palpitations in the past. Recommendations/plan: Good hydration with gradual change of position. Syncope precautions are fully explained to patient. The patient should limit consumption of alcoholic beverages. Telemetry monitoring during hospital stay. If the patient continue having syncopal symptoms, then cardiac rhythm monitoring will be helpful. (2) Seizure: Impression: After having a syncopal event, the patient hit his head, with following 2 generalized tonic-clonic seizure activity, with urinary incontinence and tongue biting. Head trauma, and alcohol withdrawal are potential causes of new onset seizures. The patient has no prior history of seizure or seizure-like activities. Apparently, he has been alcohol user daily, who has been trying to cut down alcohol use. Recommendations/plan: EEG to evaluate for epileptogenic activity. Seizure precautions are fully explained to patient. The patient should not drive motor vehicles for at least 6 months, or until getting clearance from neurology clinic. After EEG, the patient can be discharged home tomorrow. I will contact with [facility] neurology to set up a follow-up appointment. Plan As seen above. Thank you for the consultation. History of Present Illness Reason for Consultation: Syncope, seizures Requesting Physician: Erik Hurt MD Attending Physician: Erik Hurt MD History of Present Illness The patient is a 71-year-old gentleman, who was admitted to the hospital yesterday, after having an episode of loss of consciousness, with following seizures. The patient was with other family members at [employer]. After standing up, he felt lightheaded and dizzy, then passed out shortly after. He hit the back of his head on the ground. Then, the patient had a convulsive event, which lasted for 1 to 2 minutes. When paramedics arrived, the patient had another seizure, lasted for few minutes, which caused tongue biting and urinary incontinence. The patient was hypotensive and diaphoretic initially. He was taken the emergency department and his mental status was improving already. Head CT was negative for acute pathology. Serum alcohol level was lower than 10. Since admission, the patient has been stable without any syncopal symptoms, palpitations, chest pain, seizure or seizure-like activities. He denies having any syncopal events, or seizures in the past. He reports that he drinks typically 6-8 beers a day. Recently, has been trying to cut down drinking. I have reviewed the patient's chart including imaging studies and visualized them personally. I have discussed the case with the patient and family and answered their questions in detail. Allergies Allergy/AdvReac Type Severity Reaction Status Date / Time adhesive Allergy Redness of Verified 05/24/22 23:41 Skin latex Allergy Rash Verified 05/24/22 23:40 Home Medications Medication Instructions Recorded Confirmed Type acetaminophen 500 mg tablet 1,000 mg PO BID PRN Pain 05/24/22 05/24/22 History atorvastatin 20 mg tablet 20 mg PO DAILY 05/24/22 05/24/22 History azithromycin 250 mg tablet 250 mg PO 3XWK 05/24/22 05/24/22 History cyanocobalamin (vitamin B-12) 1,000 mcg PO DAILY 05/24/22 05/24/22 History 1,000 mcg tablet diclofenac sodium 75 mg 75 mg PO AMPM 05/24/22 05/24/22 History tablet,delayed release diphenhydramine HCl 50 mg tablet 50 mg PO BID 05/24/22 05/24/22 History fluticasone fur. 200 mcg-umeclid 1 inh inhalation DAILY 05/24/22 05/25/22 History 62.5 mcg-vilant 25 mcg inhalat.powder (Trelegy Ellipta) tadalafil 20 mg tablet 20 mg PO DAILY PRN Erectile 05/24/22 05/24/22 History Dysfunction tamsulosin 0.4 mg capsule 0.4 mg PO AMPM 05/24/22 05/24/22 History temazepam 30 mg capsule 30 mg PO HS 05/24/22 05/24/22 History trazodone 50 mg tablet 50 mg PO HS PRN Insomnia 05/24/22 05/24/22 History albuterol sulfate 90 mcg/actuation 2 inh inhalation Q4H PRN Shortness 05/25/22 05/25/22 History aerosol inhaler Of Breath Or Wheezing Patient History Medical History COPD (chronic obstructive pulmonary disease) Social History Smoking Status: Former smoker Smoking End Date: 12 years ago; Hx Alcohol Use: Yes Alcohol type: beer Hx Substance Use: No Preferred Language: [place] Communication Ability: Effective Web Development Manager Required: No Beliefs That Will Affect Care: None Current Living Situation: Spouse Other Information That Helps Us Care for You: No Feels Safe at Home: Yes Safety Concerns: Feels Safe At This Time Assistive Devices: None Review of Systems Review of Systems: All systems reviewed & are unremarkable except as noted in HPI & below Physical Exam Physical Exam: General Examination: Constitutional: Well developed person in no acute distress. HENT: Normal exam with inspection. Tongue laceration. CV: Hearth rhtyhm is regular. Neck: Supple, no carotid bruits. Lungs: Non-labored and comfortable breathing. Abdomen: Soft, non-tender, non-distended. Skin: No rash or ecchymosis. Left arm bruises. Extremities: No edema or cyanosis NEUROLOGICAL EXAMINATION: Mental Status: Alert and oriented to place, person and time. Cranial Nerves: II-XII are intact. No nystagmus. Funduscopy: Normal looking optic discs. Motor: 5/5 in all extremities without asymmetry. Tone: Normal without spasticity or rigidity. Sensory: Intact to all sensory modalities. Coordination: No dysmetria with FTN testing. Speech: Fluent. Comprehension is intact. Gait: Not assessed. Musculoskeletal: Normal muscle bulk, no atrophy. DTRs: 2- all. No Babinsky Results & Data Vital Signs (Past 12 Hours) Vital Signs Temp Pulse Pulse Resp BP Pulse Ox O2 Del Method 05/25/22 14:52 36.9 C 76 17 156/83 H 98 05/25/22 11:40 87 05/25/22 11:33 36.9 C 76 17 156/83 H 98 Room Air 05/25/22 07:35 36.9 C 73 18 136/82 97 Room Air 05/25/22 04:56 83 05/25/22 04:31 36.6 C 90 20 146/72 H 96 Room Air Laboratory Results Laboratory Results - last 24 hr 05/24/22 05/24/22 05/24/22 22:01 22:01 22:01 WBC 8.07 RBC 3.15 L Hgb 11.3 L POC Hgb Hct 31.8 L POC Hct MCV 101.0 H MCH 35.9 H MCHC 35.5 RDW Std Deviation 47.4 H RDW Coeff of Harish 12.8 Plt Count 168 MPV 11.0 Immature Gran % (Auto) 1.5 Neut % (Auto) 77.3 Lymph % (Auto) 12.1 [place] % (Auto) 7.7 Eos % (Auto) 0.9 Baso % (Auto) 0.5 Neut # (Auto) 6.24 Lymph # (Auto) 0.98 L [place] # (Auto) 0.62 H Eos # (Auto) 0.07 Baso # (Auto) 0.04 Immature Gran # (Auto) 0.12 PT Cancelled INR Cancelled APTT Cancelled PTT Ratio Cancelled POC Sodium Sodium Cancelled POC Potassium Potassium Cancelled POC Chloride Chloride Cancelled Carbon Dioxide Cancelled POC Total CO2 Anion Gap Cancelled POC Anion Gap POC BUN BUN Cancelled Creatinine Cancelled POC Creatinine Est Cr Clr Drug Dosing Cancelled Est GFR ( Amer) Cancelled Est GFR (Non-Af Amer) Cancelled BUN/Creatinine Ratio Cancelled Glucose Cancelled POC Glucose (other) Calcium Cancelled POC Ioniz Calcium Melchor Magnesium Total Bilirubin Cancelled AST Cancelled ALT Cancelled Alkaline Phosphatase Cancelled Troponin I High Sens Cancelled Total Protein Cancelled Albumin Cancelled Globulin Cancelled Albumin/Globulin Ratio Cancelled Lipase Cancelled Urine Color Urine Appearance Urine pH Ur Specific [place] Urine Protein Urine Glucose (UA) Urine Ketones Urine Blood Urine Nitrite Urine Bilirubin Urine Urobilinogen Ur Leukocyte Esterase Urine WBC (Auto) Urine RBC (Auto) U Hyaline Cast (Auto) U Epithel Cells (Auto) Urine Bacteria (Auto) Urine Opiates Screen Ur Methadone, Qual Urine Barbiturates Ur Phencyclidine (PCP) U Amphetamin/Meth Scrn MDMA (Ecstasy) Screen U Benzodiazepines Scrn Ur Cocaine Metabolite U Marijuana (THC) Screen Ethyl Alcohol mg/dL SARS-CoV-2, RNA, NAAT 05/24/22 05/24/22 05/24/22 22:01 22:05 23:43 WBC RBC Hgb POC Hgb 11.9 L Hct POC Hct 35 L MCV MCH MCHC RDW Std Deviation RDW Coeff of Harish Plt Count MPV Immature Gran % (Auto) Neut % (Auto) Lymph % (Auto) [place] % (Auto) Eos % (Auto) Baso % (Auto) Neut # (Auto) Lymph # (Auto) [place] # (Auto) Eos # (Auto) Baso # (Auto) Immature Gran # (Auto) PT INR APTT PTT Ratio POC Sodium 136 Sodium 134 L POC Potassium 5.7 H Potassium 4.5 POC Chloride 109 Chloride 106 Carbon Dioxide 19 L POC Total CO2 16 L Anion Gap 9 POC Anion Gap 18.0 POC BUN 31 H BUN 23 Creatinine 1.35 POC Creatinine 1.6 H Est Cr Clr Drug Dosing 47.1 Est GFR ( Amer) 59.9 Est GFR (Non-Af Amer) 51.7 BUN/Creatinine Ratio 17.0 Glucose 111 H POC Glucose (other) 128 H Calcium 9.0 POC Ioniz Calcium Melchor 1.15 Magnesium Total Bilirubin 0.9 AST 98 H ALT 67 H Alkaline Phosphatase 65 Troponin I High Sens 59.2 H* Total Protein 7.4 Albumin 4.4 Globulin 3.0 Albumin/Globulin Ratio 1.5 Lipase 73 Urine Color Urine Appearance Urine pH Ur Specific [place] Urine Protein Urine Glucose (UA) Urine Ketones Urine Blood Urine Nitrite Urine Bilirubin Urine Urobilinogen Ur Leukocyte Esterase Urine WBC (Auto) Urine RBC (Auto) U Hyaline Cast (Auto) U Epithel Cells (Auto) Urine Bacteria (Auto) Urine Opiates Screen Ur Methadone, Qual Urine Barbiturates Ur Phencyclidine (PCP) U Amphetamin/Meth Scrn MDMA (Ecstasy) Screen U Benzodiazepines Scrn Ur Cocaine Metabolite U Marijuana (THC) Screen Ethyl Alcohol mg/dL < 10.0 SARS-CoV-2, RNA, NAAT 05/24/22 05/25/22 05/25/22 23:43 01:11 03:20 WBC RBC Hgb POC Hgb Hct POC Hct MCV MCH MCHC RDW Std Deviation RDW Coeff of Harish Plt Count MPV Immature Gran % (Auto) Neut % (Auto) Lymph % (Auto) [place] % (Auto) Eos % (Auto) Baso % (Auto) Neut # (Auto) Lymph # (Auto) [place] # (Auto) Eos # (Auto) Baso # (Auto) Immature Gran # (Auto) PT 11.5 INR 1.1 APTT 23.6 PTT Ratio 0.9 POC Sodium Sodium POC Potassium Potassium POC Chloride Chloride Carbon Dioxide POC Total CO2 Anion Gap POC Anion Gap POC BUN BUN Creatinine POC Creatinine Est Cr Clr Drug Dosing Est GFR ( Amer) Est GFR (Non-Af Amer) BUN/Creatinine Ratio Glucose POC Glucose (other) Calcium POC Ioniz Calcium Melchor Magnesium Total Bilirubin AST ALT Alkaline Phosphatase Troponin I High Sens Total Protein Albumin Globulin Albumin/Globulin Ratio Lipase Urine Color Yellow Urine Appearance Clear Urine pH 5.0 Ur Specific [place] 1.021 Urine Protein Negative Urine Glucose (UA) Negative Urine Ketones Trace H Urine Blood 2+ H Urine Nitrite Negative Urine Bilirubin Negative Urine Urobilinogen Negative Ur Leukocyte Esterase Negative Urine WBC (Auto) 0 Urine RBC (Auto) 0-4 U Hyaline Cast (Auto) 0 U Epithel Cells (Auto) 0-5 Urine Bacteria (Auto) Negative Urine Opiates Screen Ur Methadone, Qual Urine Barbiturates Ur Phencyclidine (PCP) U Amphetamin/Meth Scrn MDMA (Ecstasy) Screen U Benzodiazepines Scrn Ur Cocaine Metabolite U Marijuana (THC) Screen Ethyl Alcohol mg/dL SARS-CoV-2, RNA, NAAT NEGATIVE 05/25/22 05/25/22 05/25/22 03:20 04:27 08:49 WBC RBC Hgb POC Hgb Hct POC Hct MCV MCH MCHC RDW Std Deviation RDW Coeff of Harish Plt Count MPV Immature Gran % (Auto) Neut % (Auto) Lymph % (Auto) [place] % (Auto) Eos % (Auto) Baso % (Auto) Neut # (Auto) Lymph # (Auto) [place] # (Auto) Eos # (Auto) Baso # (Auto) Immature Gran # (Auto) PT INR APTT PTT Ratio POC Sodium Sodium 138 POC Potassium Potassium 4.2 POC Chloride Chloride 108 H Carbon Dioxide 20 L POC Total CO2 Anion Gap 10 POC Anion Gap POC BUN BUN 18 Creatinine 1.08 POC Creatinine Est Cr Clr Drug Dosing 58.9 Est GFR ( Amer) 78.5 Est GFR (Non-Af Amer) 67.7 BUN/Creatinine Ratio 16.7 Glucose 127 H POC Glucose (other) Calcium 9.3 POC Ioniz Calcium Melchor Magnesium 2.1 Total Bilirubin AST ALT Alkaline Phosphatase Troponin I High Sens 95.3 H* D 75.4 H* D Total Protein Albumin Globulin Albumin/Globulin Ratio Lipase Urine Color Urine Appearance Urine pH Ur Specific [place] Urine Protein Urine Glucose (UA) Urine Ketones Urine Blood Urine Nitrite Urine Bilirubin Urine Urobilinogen Ur Leukocyte Esterase Urine WBC (Auto) Urine RBC (Auto) U Hyaline Cast (Auto) U Epithel Cells (Auto) Urine Bacteria (Auto) Urine Opiates Screen Neg Ur Methadone, Qual Neg Urine Barbiturates Neg Ur Phencyclidine (PCP) Neg U Amphetamin/Meth Scrn Neg MDMA (Ecstasy) Screen Neg U Benzodiazepines Scrn Neg Ur Cocaine Metabolite Neg U Marijuana (THC) Screen Neg Ethyl Alcohol mg/dL SARS-CoV-2, RNA, NAAT Diagnostic Findings Cervical Spine CT 05/24/22 21:55 Exam(s): CT C SPINE EXAM: CT Cervical Spine Without Intravenous Contrast CLINICAL HISTORY: Reason for exam: fall. TECHNIQUE: Axial computed tomography images of the cervical spine without intravenous contrast. CTDI is 38.03 mGy and DLP is 2329.08 mGy-cm. Automated exposure control was utilized for the study. A dose lowering technique was utilized adhering to the principles of ALARA. COMPARISON: No relevant prior studies available. FINDINGS: Vertebrae: Unremarkable. No acute fracture. Discs/spinal canal/neural foramina: The patient is status post anterior fusion at C6-7. There are moderate multilevel degenerative changes. No spinal canal stenosis. Soft tissues: Unremarkable. Vasculature: There are dense calcifications of the carotid bulbs. IMPRESSION: No acute findings in the cervical spine. Electronically signed by: Denver Connors MD 05/24/22 23:[address] 05/24/22 21:55 Exam(s): CT HEAD Without Contrast EXAM: CT Head Without Intravenous Contrast CLINICAL HISTORY: Reason for exam: fall. TECHNIQUE: Axial computed tomography images of the head/brain without intravenous contrast. CTDI is 38.03 mGy and DLP is 2329.08 mGy-cm. Automated exposure control was utilized for the study. A dose lowering technique was utilized adhering to the principles of ALARA. COMPARISON: No relevant prior studies available. FINDINGS: Brain: The cerebral and cerebellar sulci are mildly prominent consistent with mild brain atrophy. There are a few areas of decreased attenuation in the deep cerebral white matter consistent with mild small vessel ischemic/degenerative changes. No hemorrhage. Ventricles: Unremarkable. No ventriculomegaly. Bones/joints: Rightward deviation of the bony nasal septum. No acute fracture. Soft tissues: There is soft tissue swelling over the right parietal calvarium without underlying osseous injury identified. Vasculature: Atherosclerotic disease. Sinuses: Unremarkable as visualized. No acute sinusitis. Mastoid air cells: Unremarkable as visualized. No mastoid effusion. IMPRESSION: No acute findings in the head/brain. Electronically signed by: Denver Connors MD 05/24/22 23:43 PM Abdomen/Pelvis CT 05/24/22 22:01 Exam(s): CT ABDOMEN + PELVIS With Contrast IV Amt: 112 ml optiray EXAM: CT Abdomen and Pelvis With Intravenous Contrast CLINICAL HISTORY: Reason for exam: fall. TECHNIQUE: Axial computed tomography images of the abdomen and pelvis with intravenous contrast. CTDI is 38.03 mGy and DLP is 2329.08 mGy-cm. Automated exposure control was utilized for the study. A dose lowering technique was utilized adhering to the principles of ALARA. CONTRAST: Patient received 112 ml optiray of IV contrast COMPARISON: No relevant prior studies available. FINDINGS: Lung bases: 2 cm enhancing mass at the left base of the urinary bladder (image 71 series 9) concerning for urothelial cell carcinoma. ABDOMEN: Liver: Surface nodularity of the liver which may reflect early morphologic change of cirrhosis. Gallbladder and bile ducts: Unremarkable. No calcified stones. No ductal dilation. Pancreas: Unremarkable. No mass. No ductal dilation. Spleen: Unremarkable. No splenomegaly. Adrenals: Unremarkable. No mass. Kidneys and ureters: Simple appearing right renal cyst. No hydronephrosis. Stomach and bowel: Extensive colonic diverticula. No obstruction. No mucosal thickening. PELVIS: Appendix: No findings to suggest acute appendicitis. Bladder: See above. Reproductive: Unremarkable as visualized. ABDOMEN and PELVIS: Intraperitoneal space: Unremarkable. No free air. No significant fluid collection. Bones/joints: Degenerative changes of the thoracolumbar spine. No acute fracture. No dislocation. Soft tissues: Unremarkable. Vasculature: There is diffuse atherosclerotic calcification of the aorta and its major branch vessels. No abdominal aortic aneurysm. Lymph nodes: Unremarkable. No enlarged lymph nodes. IMPRESSION: 1. No acute post traumatic injury in the abdomen or pelvis. 2. 2 cm enhancing mass within the urinary bladder concerning for urothelial cell carcinoma, please correlate with cystoscopy. Electronically signed by: Denver Connors MD 05/24/22 23:51 PM Chest CTA 05/24/22 22:01 Exam(s): CTA CHEST IV Amt: 112 ml opitiray EXAM: CT Angiography Chest With Intravenous Contrast CLINICAL HISTORY: Reason for exam: PE. TECHNIQUE: Axial computed tomographic angiography images of the chest with intravenous contrast. CTDI is 38.03 mGy and DLP is 2329.08 mGy-cm. Automated exposure control was utilized for the study. A dose lowering technique was utilized adhering to the principles of ALARA. MIP reconstructed images were created and reviewed. COMPARISON: No relevant prior studies available. FINDINGS: Pulmonary arteries: Unremarkable. No pulmonary embolism. Aorta: No acute findings. No thoracic aortic aneurysm. Lungs: There is moderate scattered emphysema. There is mild bronchial wall thickening. No mass. Pleural space: Unremarkable. No significant effusion. No pneumothorax. Heart: Unremarkable. No cardiomegaly. No significant pericardial effusion. No evidence of RV dysfunction. Bones/joints: There are degenerative changes of the thoracolumbar spine. No acute fracture. No dislocation. Soft tissues: Unremarkable. Lymph nodes: Unremarkable. No enlarged lymph nodes. IMPRESSION: No acute findings in the visualized arteries of the chest. Electronically signed by: Denver Connors MD 05/24/22 23:48 PM Shoulder X-Ray 05/24/22 22:01 XR shoulder LT min 2V routine CLINICAL HISTORY: fall TECHNIQUE: 3 views of the left shoulder were obtained. Comparison: None available at the time of this dictation. FINDINGS: There is no evidence of an acute fracture. Joint spaces are well-preserved. The overlying soft tissues are unremarkable. The visualized portions of the lungs are clear. IMPRESSION: No evidence of acute osseous injury. ACT 112: Negative or not required by law. Electronically signed by: Tony Moody M.D. 05/25/2022 8:40 AM TTE--left ventricular systolic function was normal with ejection fraction of 60 to 65%. There was grade 1 diastolic dysfunction. Right ventricle and bilateral atrial sizes were normal. There was no obvious valvular pathology. (1) Syncope Syncope type: unspecified Qualified Code(s): R55 - Syncope and collapse
--- NOTE | 2022-05-25 15:18 | Discharge Summary ---
Date of Service May 25, 2022 Admission HPI Per Admitting Provider 71 yo male with PMHx of HLD, HTN, BPH, and insomnia presents with syncopal event and seizure. [place] in [facility]. He was with family members who witnessed the event.Patient recalls standing up and then feeling dizzy and lightheaded to the point he fainted and hit the back of his head on the ground. Family reports when he was on the ground he had an initial seizure for 2 minutes. Then when paramedics arrived he had another seizure lasting about 5 minutes. He did bite his tongue. He does not recall the seizure. Other than some ongoing shortness of breath the last few weeks pt denies headache, fever, fatigue, chest pain, abd pain,N/V/D. He is compliant at home with his medications and inhalers. Denies past seizure history. He does drink about 6 beers daily and was drinking prior to syncopal episode. Principal Diagnosis syncope possible seizure low blood pressure from possible medications copd chronic and stable mass in bladder of undetermined significance Discharge Data Allergies Allergy/AdvReac Type Severity Reaction Status Date / Time adhesive Allergy Redness of Verified 05/24/22 23:41 Skin latex Allergy Rash Verified 05/24/22 23:40 Consultations 05/25/22 01:00 ED Decision to Admit Stat 05/25/22 02:29 Consult Neurology Routine 05/25/22 12:44 HIM [Consult Health Information Management] Routine Ordered Studies 05/24/22 21:55 CT cervical spine wo con Stat CT head/brain wo con Stat 05/24/22 22:01 CT abd pelvis IV con only Stat CT angio chest PE protocol Stat Hospital Course (1) Seizure: 71 yo male with PMHx of HLD, HTN, BPH, and insomnia presents with syncopal event and seizure. Acute moderate risk -presented s/p syncopal event and witnessed seizure x2. Denies seizure history does take hs temazepam. Suspect syncope secondary to dehydration or orthostasis, and movements seen maybe not true seizures -CT head and C-spine negative. CTA chest negative for PE. -shoulder x ray no fractures -neuro consulted, recommend eeg for follow up will have as outpt as [place] is from out of the area Acute Elevated troponin, maybe demand ischemia from low blood pressure on presentation (HCTZ and olmesartan) -58 -> 95->75 EKG no acute changes . Tele reads NSR. -Echo witout RWMA or concern for ischemia typically on atorvastatin for cardiac risk factor modification COPD Chronic respiratory failure, stable -cont. inhalers -on chronic suppressive azithromycin 3 x a week Insomnia chronic stable trazodone, temazepam, diphenhydramine chronic stable BPH Bladder Mass suspiciouis for urothelial malignancy -incidental finding on CT A/P: 2 cm enhancing mass within the urinary bladder -will need further evaluation with cystoscopy. (2) Elevated troponin I level: (3) Mass of bladder: Total Time Total Time Spent Total Time Spent (In Minutes): greater than 30 minutes were required Discharge Plan Discharge Items Patient Disposition: Home - Self-Care Reason For Visit: SEIZURES/FALL HIT HEAD Discharge Diagnosis: passing out due to low blood pressure possible seizure mass in bladder Activity: Per Instructions section Activity Comment: no driving , walker when walking Non-emergency contact: Primary Care Provider and Urologist Call non-emergency contact if: your symptoms worsen Follow-up/Referrals: REYES RANDLE [Other] Diet: Regular Addtl Attending Provider Instructions: please stop your blood pressure medication and follow up with your primary care doctor this week please be sure to see your urologist at home to discuss the mass seen in your bladder Pending Studies at Discharge: Yes (final culture results ) Stand-Alone Forms: My [employer], Smoking Cessation Medications and DC Order Prescriptions: Continued diclofenac sodium 75 mg tablet,delayed release (DR/EC) 75 mg PO AMPM Rx Instructions: TAKE WITH FOOD atorvastatin 20 mg tablet 20 mg PO DAILY azithromycin 250 mg tablet 250 mg PO 3XWK Rx Instructions: TAKE THIS MED EVERY THURSDAY/THURSDAY/THURSDAY ( CARE HOME). temazepam 30 mg capsule 30 mg PO HS tadalafil 20 mg tablet 20 mg PO DAILY PRN (Reason: Erectile Dysfunction) cyanocobalamin (vitamin B-12) 1,000 mcg Tablet 1,000 mcg PO DAILY diphenhydramine HCl 50 mg Tablet 50 mg PO BID acetaminophen [Tylenol Ex Str Rapid Release] 500 mg Tablet 1,000 mg PO BID PRN (Reason: Pain) tamsulosin 0.4 mg capsule 0.4 mg PO AMPM trazodone 50 mg tablet 50 mg PO HS PRN (Reason: Insomnia) Trelegy Ellipta 200-62.5-25 mcg blister with device 1 inh INHALATION DAILY albuterol sulfate 90 mcg/actuation HFA aerosol inhaler 2 inh INHALATION Q4H PRN (Reason: Shortness Of Breath Or Wheezing) Discontinued olmesartan 20 mg tablet 20 mg PO QAM hydrochlorothiazide 12.5 mg capsule 12.5 mg PO QAM Discharge Orders: Discharge Order (Routine); Ordered 05/25/22 Ordered By: Erik Hurt Admission Data Admit Date/Time: 05/25/22 02:13 Attending Provider: Erik Hurt Admit Provider: Gopi Crow Primary Care Provider: REYES RANDLE Other Providers: Abraham Cedeno ; Fabrizio Patel Other Interventions: Discharge Summary Assessment (RN) Last Done: 05/25/22 14:52 Coding Level of Care Code 52928 INP/OBS DISCH >30 MIN Diagnoses Seizure R56.9 Elevated troponin I level R77.8 Mass of bladder N32.89
--- NOTE | 2022-05-25 19:38 | Billing Data ---
Date of Service May 25, 2022 Coding Level of Care Code 80342 INT INP/OBS CARE
[2022-05-26] MEDS ORDERED: AZITHROMYCIN 250 MG TAB PO SCH (09:00)
== END 2022-05-25 16:06 | disposition home or self-care (01) | DRG 312 ==
LOC: ED 21:49 → SUATTDRO 05-25 02:13 → 2S 05-25 03:43